=== PATIENT | male | born 1965 | race Hispanic/Latino ===

== ENCOUNTER 2017-06-03 23:58 | Emergency (ER) | payer OTHER ==
[2017-06-04] MEDS ORDERED: Sodium Chloride 0.9% 1,000 ML IV STA ×2 (00:09→02:58)
--- NOTE | 2017-06-04 00:34 | ED PDOC ---
Syncope/Near Syncope/Dizziness Time Seen by Provider: 06/04/17 00:01 Chief Complaint (Nursing): Syncope Chief Complaint (Provider): Syncope History Per: Patient History/Exam Limitations: no limitations Number Of Syncopal Episodes: 1 Activity At Onset Of Symptoms: Other (Voiding) Associated Symptoms Preceding Syncopal Episode: Lightheadedness Fall Associated With With Symptoms: Yes Additional History Per: Family Additional Complaint(s): 51 year old male, past medical history of osteoarthritis who is status post left hip resurfacing done at [facility] for [facility] presents to the ED for evaluation of a syncopal event just prior to arrival. He reports that he was discharged from hospital at 14:00 and states that just prior to arrival this evening he had an episode of lightheadedness while voiding causing him to fall. His was present at time and reports that he did not injure himself or hit his head during fall. She reports that while getting him up he fell again with a few seconds of LOC. She reports that the patient had become diaphoretic ad pale during the episode. On arrival to ER patient reports that he has had increase in left hip pain since surgery. He did take one oxycodone earlier this evening. Past Medical History Reviewed: Historical Data, Nursing Documentation, Vital Signs Vital Signs: Last Vital Signs Temp 99.0 F 06/04/17 00:00 Pulse 82 06/04/17 00:00 Resp 18 06/04/17 00:00 BP 104/57 L 06/04/17 00:00 Pulse Ox 99 06/04/17 00:00 - Medical History PMH: Arthritis - Surgical History Other surgeries: Left hip resurfacing, Partial thyroidectomy - Family History Family History: States: No Known Family Hx - Social History Current smoker - smoking cessation education provided: No Ex-Smoker (has not smoked in the last 12 months): No Alcohol: None Drugs: Denies - Allergies Allergies/Adverse Reactions: Allergies Allergy/AdvReac Type Severity Reaction Status Date / Time No Known Allergies Allergy Verified 06/04/17 00:00 Review of Systems Cardiovascular: Positive for: Light Headedness Neurological: Positive for: Other (Syncope) Physical Exam - Reviewed Nursing Documentation Reviewed: Yes Vital Signs Reviewed: Yes - Physical Exam Appears: Positive for: Non-toxic, No Acute Distress Head Exam: Positive for: ATRAUMATIC, NORMOCEPHALIC Skin: Positive for: Normal Color, Warm, Dry Eye Exam: Positive for: EOMI, Normal appearance, PERRL Neck: Positive for: Normal, Painless ROM, Supple Cardiovascular/Chest: Positive for: Regular Rate, Rhythm. Negative for: Murmur Respiratory: Positive for: Normal Breath Sounds. Negative for: Respiratory Distress Gastrointestinal/Abdominal: Positive for: Normal Exam, Soft. Negative for: Tenderness Back: Positive for: Normal Inspection. Negative for: L CVA Tenderness, R CVA Tenderness, Other (midline) Extremity: Positive for: Other (Left hip dressing clean, dry, and intact, No adjacent erythema or swelling, No significant tenderness at surgical site.) - Laboratory Results Result Diagrams: 06/04/17 00:30 06/04/17 00:30 - ECG O2 Sat by Pulse Oximetry: 99 Medical Decision Making Medical Decision Making: Impression: 51 year old male with syncopal event in post operative setting. Plan: Labs IV Fluids IV morphine (patient reporting increased left hip pain) 06/04/17 03:00 Labs reviewed. No significant abnormalities. Patient reports marked improvement of all symptoms. Will discharge home. Diagnosis:Vasovagal syncope Scribe Attestation: Documented by Nam Rivera acting as a scribe for Kalia Murray MD. Scribe Attestation: All medical record entries made by the Scribe were at my direction and personally dictated by me. I have reviewed the chart and agree that the record accurately reflects my personal performance of the history, physical exam, medical decision making, and the department course for this patient. I have also personally directed, reviewed, and agree with the discharge instructions and disposition. Disposition - Clinical Impression Clinical Impression: Vasovagal syncope - Disposition Disposition Time: 03:00 Condition: STABLE Instructions: Syncope (ED) Forms: [facility] (Faroese)
[2017-06-04 00:56] LABS: BASO % 0.2 % (0.0-2.0); EOS # 0.1 K/uL (0.0-0.7); EOS % 0.8 % (0.0-4.0); HEMATOCRIT 37.6 % (35.0-51.0); LYMPH # 1.6 K/uL (1.0-4.3); LYMPH % 16.9 % (20.0-40.0); MEAN CELL VOLUME 93.8 fl (80.0-94.0); MEAN CORPUSCULAR HEMOGLOBIN 31.1 pg (27.0-31.0); MEAN CORPUSCULAR HGB CONC 33.1 g/dL (33.0-37.0); MEAN PLATELET VOLUME 9.3 fl (7.2-11.7); MONO # 0.8 K/uL (0.0-0.8); MONO % 8.7 % (0.0-10.0); NEUT % 73.4 % (50.0-75.0); WHITE BLOOD COUNT 9.5 K/uL (4.8-10.8)
[2017-06-04] MEDS ORDERED: diaZEpam 10 mg/2 ml Inj IVP ONE (01:02)
[2017-06-04 01:07] LABS: ALB/GLOB RATIO 1.5 (1.0-2.1); ALKALINE PHOSPHATASE 36 U/L (38-126); ALT/SGPT 47 U/L (21-72); AST/SGOT 101 U/L (17-59); BILIRUBIN,TOTAL 0.5 mg/dl (0.2-1.3); BLOOD UREA NITROGEN 17 mg/dl (9-20); CALCIUM 8.5 mg/dL (8.4-10.2); CARBON DIOXIDE 27 mmol/L (22-30); CHLORIDE 102 mmol/L (98-107); GFR AFRICAN-AMERICAN > 60; GLUCOSE,RANDOM 117 mg/dL (75-110); POTASSIUM 4.3 MMOL/L (3.6-5.0); SODIUM 141 mmol/l (132-148)
[2017-06-04 01:19] LABS: PARTIAL THROMBOPLASTIN TIME 23.2 Seconds (25.6-37.1)
[2017-06-04 06:54] VITALS: BP 115/80; PULSE 75; RESP 16; TEMP 97.9; O2SAT 100
--- NOTE | 2017-06-05 12:17 | CARD ---
APPROVED REPORT EKG Measurement Heart [id number] <Conclusion> Normal sinus rhythm Normal ECG
== END 2017-06-04 09:03 | disposition home or self-care (01) ==
LOC: H.ER 23:58
DX: R55 Syncope and collapse (principal)
CPT/HCPCS: 80053; 84484; 85025; 85610; 85730; 86850; 86900; 93005; 96361; 96374; 96375; 99285; J2270; J3360; J7040